=== PATIENT | male | born 1990 | race Caucasian/White ===

== ENCOUNTER 2021-05-16 18:01 | Emergency (ER) | payer BC ==
[~2021-05-16] VITALS: Ht 182.9 cm; Wt 104.3 kg
--- NOTE | 2021-05-16 20:55 | NUR ---
PT OUT TO CT
[2021-05-16] MEDS ORDERED: NAPR500T6 PO (22:57)
[2021-05-16] MEDS ORDERED: CYCL5TAB PO (22:58)
[2021-05-16 23:05] VITALS: BP 140/77
--- NOTE | 2021-05-16 23:05 | NUR ---
Patient discharged to home in stable condition. Written and verbal after care instructions given. Patient verbalizes understanding of instruction.
== END 2021-05-16 23:06 | disposition home or self-care (01) ==
LOC: ER 18:07
DX: S06.0X0A Concussion without loss of consciousness, initial encounter (principal); Z91.013 Allergy to seafood; V43.52XA Car driver injured in collision with other type car in traffic accident, initial encounter; Y93.89 Activity, other specified; Y92.410 Unspecified street and highway as the place of occurrence of the external cause; Y99.8 Other external cause status
CPT/HCPCS: 70450-TC; 76700-TC